=== PATIENT | female | born 1980 | race Caucasian/White ===

== ENCOUNTER 2020-05-06 13:09 | Emergency (ER) | payer OTHER, SELFPAY ==
--- NOTE | ~2020-05-06 | CT_ITS ---
EXAMINATION: CT ABDOMEN AND PELVIS WITHOUT CONTRAST CLINICAL INFORMATION: Left lower quadrant pain. COMPARISON: CT abdomen and pelvis dated 12/15/2018. TECHNIQUE: Multidetector volumetric imaging was performed from the superior aspect of the liver through the pubic symphysis. Sagittal and coronal reformatted images were obtained on the technologist's workstation. This CT examination was performed using dose optimization techniques as appropriate, variously including the following: *Automated exposure control *Adjustment of mA and/or kV according to patient size (this includes techniques or standardized protocols for targeted exams where dose is matched to indication/reason for exam; i.e. extremities or head) *Use of iterative reconstruction technique DLP: 888 mGy-cm FINDINGS: LUNG BASES: The visualized lung bases are unremarkable. LIVER, GALLBLADDER, AND BILIARY TREE: The liver is normal in size, shape, and attenuation. No focal hepatic lesion or biliary ductal dilatation is present. Gallbladder is surgically absent. PANCREAS: Normal. SPLEEN: Normal. ADRENAL GLANDS: Normal. KIDNEYS AND URETERS: The kidneys are normal in size, shape, and attenuation. No hydronephrosis, hydroureter, or calculi seen. No perinephric stranding. BLADDER: Normal. GASTROINTESTINAL TRACT: Approximately 6 cm segment of distal left colon and proximal sigmoid colon wall thickening with surrounding mesenteric fat inflammatory changes and associated inflamed diverticula. No evidence of intraperitoneal free air. No intraperitoneal collection. ABDOMINAL WALL: No significant hernia is appreciated. LYMPH NODES: Normal. VASCULAR: Normal. PELVIC VISCERA: Anteverted uterus. No adnexal mass. OSSEOUS STRUCTURES: No aggressive osseous lesions. L1 superior endplate Schmorl's node. CT/CT abdomen pelvis wo con IMPRESSION: Acute uncomplicated diverticulitis involving an approximately 6 cm of proximal sigmoid colon and small portion of distal left colon.
[2020-05-06 13:50] VITALS: BP 127/75; PULSE 110; RESP 18; TEMP 37.2; O2SAT 99; BMI 39.4
[2020-05-06 14:08] LABS: Glucose Urine UA NEG (NEG); Leukocyte Esterase Urine NEG (NEG); Nitrite Urine NEG (NEG); Specific Gravity - Urine 1.015 (1.005-1.025); Urine Blood NEG (NEG); Urine Ketones NEG (NEG); Urine Protein NEG (NEG-TRACE)
[2020-05-06 14:10] LABS: Appearance Urine HAZY; Color Urine YELLOW
[2020-05-06 14:12] LABS: UPreg QC Valid YES; Urine Pregnancy NEGATIVE (NEGATIVE)
--- NOTE | 2020-05-06 14:43 | ED_ITS ---
HPI - Abdominal Pain General Chief Complaint: Abdominal Pain Stated Complaint: ABD PAIN Time Seen by Provider: 05/06/20 14:33 Source: patient Mode of arrival: ambulatory Limitations: no limitations History of Present Illness HPI narrative: 39 y/o female with history of obesity, seasonal allergies and uterine fibroids presents to the ED with worsening LLQ pain since last night. She reports the pain is sharp and twisting and it does not radiate. Movement and palpation make the pain worse and resting makes it better. She took some Milk of Magnesia yesterday for some constipation. She had a normal bowel movement with no improvement in the pain. She states her LMP was 2-3 weeks ago and she denies chance of . She denies vaginal bleeding or discharge. No blood in her stool. She reports some nausea but no vomiting. She denies fevers but had chills this morning. MD elicited complaint: abdominal pain Pertinent past history: constipation Onset (ago): day(s) Pain Consistency: constant Location: LLQ Severity: severe Quality: cramping and stabbing Radiation: none Migration to: no migration Exacerbating factors: movement Relieving factors: rest Associated symptoms: nausea and constipation Related Data Date of Last Menstrual Period: 04/19/20 Patient : No Previous Rx's Medication Instructions Recorded hydrocodone-acetaminophen 1 tab PO Q8H PRN #5 tab 05/06/20 ibuprofen 600 mg PO Q8H PRN #15 tab 05/06/20 levofloxacin 500 mg PO DAILY 9 Days #9 tab 05/06/20 metronidazole [Flagyl] 500 mg PO Q12H #20 tab 05/06/20 ondansetron HCl [Zofran] 4 mg PO Q8H PRN #10 tab 05/06/20 Allergies Allergy/AdvReac Type Severity Reaction Status Date / Time No Known Allergies Allergy Unverified 11/03/19 16:46 Review of Systems Review of Systems Constitutional: No Fever, + Chills ENT/Mouth: No sore throat, No Rhinorrhea, No Swallowing Difficulty Cardiovascular: No Chest Pain, No SOB Respiratory: No Cough, No Sputum Gastrointestinal: + Nausea, No Vomiting, No Diarrhea, + abdominal Pain Genitourinary: No Dysuria, No Urinary Frequency, No Hematuria Musculoskeletal: No joint pain, No myalgias Skin: No Skin Lesions, No rash Neuro: No Weakness, No Numbness, No Dizziness, No Headache Psych: No Anxiety/Panic, No Depression Heme/Lymph: No Bruising, No Lymphadenopathy Endocrine: No Polyuria, No Polydipsia Physical Exam Vital Signs: Vital Signs: Last Vital Signs Temp 99 F 05/06/20 13:50 Pulse 110 H 05/06/20 13:50 Resp 18 05/06/20 13:50 BP 127/75 05/06/20 13:50 Pulse Ox 99 05/06/20 13:50 Body Mass Index 39.4 Appearance: Alert. Oriented X3. No acute distress. Eyes: Pupils equal, round and reactive to light. ENT: Pharynx normal. Neck: Normal inspection. Neck supple. CVS: Normal heart rate and rhythm. Pulses normal. Respiratory: No respiratory distress. Breath sounds normal. Abdomen: Obese, soft with LLQ tenderness, +rebound. No guarding. +BS x4 Skin: Skin warm and dry. Normal skin color. Normal skin turgor. No rashes. Extremities: No lower extremity edema. Neuro: Oriented X 3. No motor deficit. No sensory deficit. Steady gait Course Course Course Narrative: 39 y/o female presenting with acute onset of LLQ pain that started yesterday. UA is negative and test is negative. She is tender on exam. Will get labs and CT scan for further evaluation. Reevaluation(s) Reevaluation #1: CT showing acute diverticulitis of the sigmoid colon. No leukocytosis. No vomiting. She is able to tolerate PO. Will plan to treat with PO antibiotics, antiemetics and pain control and d/c home. She is agreeable with plan and will follow up with her doctor this week and return to the ER if symptoms worsen. MDM - Abdominal Pain Lab Data Result diagrams: 05/06/20 15:20 05/06/20 15:20 Labs: Lab Results 05/06/20 05/06/20 05/06/20 Range/Units 13:58 13:58 15:20 WBC 6.2 (4.8-10.8) X10*3/uL RBC 4.51 (4.20-5.50) X10*6/uL Hgb 12.6 (12.0-16.0) g/dl Hct 39.2 (37-47) % MCV 86.9 (80-98) fL MCH 27.9 (27.0-33.0) pg MCHC 32.1 (31.0-35.0) g/dl RDW 13.9 (11.0-16.0) % Plt Count 320 (160-400) X10*3/uL MPV 10.4 (9.4-12.3) fL Immature Gran % (Auto) 0.2 (0.0-0.4) % Neut % (Auto) 61.3 (45-73) % Lymph % (Auto) 29.5 (20-40) % [place] % (Auto) 7.7 (2-11) % Eos % (Auto) 0.8 (0-4) % Baso % (Auto) 0.5 (0-2) % Lymph # (Auto) 1.8 (1.2-4.9) X10*3/uL [place] # (Auto) 0.5 (0.1-1.2) X10*3/uL Eos # (Auto) 0.1 (0.0-0.4) X10*3/uL Baso # (Auto) 0.0 (0.0-0.2) X10*3/uL Abs Immat Gran (auto) 0.01 (0.00-0.03) X10*3/uL Absolute Neuts (auto) 3.8 (2.0-8.3) X10*3/uL Absolute Nucleated RBC 0.000 (0.0-0.012) X10*3/uL Nucleated RBC % (auto) 0.0 (0.0-0.2) /100WBC Hold Blue Top Sodium (135-145) mmol/L Potassium (3.3-5.1) mmol/L Chloride (96-108) mmol/L Carbon Dioxide (22-29) mmol/L Anion Gap (12-20) BUN (9-16) mg/dL Creatinine (0.5-1.4) mg/dL Estim Creat Clear Calc Estimated GFR Random Glucose (60-115) mg/dL Calcium (8.4-10.2) mg/dL Magnesium (1.6-2.6) mg/dL Total Bilirubin (0.0-1.0) mg/dL Direct Bilirubin (0.0-0.5) mg/dL AST (5-31) U/L ALT (0-31) U/L Alkaline Phosphatase (39-117) U/L Total Protein (6.5-8.0) g/dL Albumin (3.5-5.0) g/dL Urine Color YELLOW Urine Appearance HAZY Urine pH 7.0 (5.0-8.0) Ur Specific [place] 1.015 (1.005-1.025) Urine Protein NEG (NEG-TRACE) MG/DL Urine Glucose (UA) NEG (NEG) MG/DL Urine Ketones NEG (NEG) MG/DL Urine Blood NEG (NEG) Urine Nitrite NEG (NEG) Ur Leukocyte Esterase NEG (NEG) Urine Test NEGATIVE (NEGATIVE) 05/06/20 05/06/20 Range/Units 15:20 15:20 WBC (4.8-10.8) X10*3/uL RBC (4.20-5.50) X10*6/uL Hgb (12.0-16.0) g/dl Hct (37-47) % MCV (80-98) fL MCH (27.0-33.0) pg MCHC (31.0-35.0) g/dl RDW (11.0-16.0) % Plt Count (160-400) X10*3/uL MPV (9.4-12.3) fL Immature Gran % (Auto) (0.0-0.4) % Neut % (Auto) (45-73) % Lymph % (Auto) (20-40) % [place] % (Auto) (2-11) % Eos % (Auto) (0-4) % Baso % (Auto) (0-2) % Lymph # (Auto) (1.2-4.9) X10*3/uL [place] # (Auto) (0.1-1.2) X10*3/uL Eos # (Auto) (0.0-0.4) X10*3/uL Baso # (Auto) (0.0-0.2) X10*3/uL Abs Immat Gran (auto) (0.00-0.03) X10*3/uL Absolute Neuts (auto) (2.0-8.3) X10*3/uL Absolute Nucleated RBC (0.0-0.012) X10*3/uL Nucleated RBC % (auto) (0.0-0.2) /100WBC Hold Blue Top SEE NOTE Sodium 138 (135-145) mmol/L Potassium 4.7 (3.3-5.1) mmol/L Chloride 103 (96-108) mmol/L Carbon Dioxide 23 (22-29) mmol/L Anion Gap 17 (12-20) BUN 8 L (9-16) mg/dL Creatinine 0.70 (0.5-1.4) mg/dL Estim Creat Clear Calc 129.5 Estimated GFR > 60 Random Glucose 97 (60-115) mg/dL Calcium 8.6 (8.4-10.2) mg/dL Magnesium 2.2 (1.6-2.6) mg/dL Total Bilirubin < 0.2 (0.0-1.0) mg/dL Direct Bilirubin < 0.2 (0.0-0.5) mg/dL AST 16 (5-31) U/L ALT 17 (0-31) U/L Alkaline Phosphatase 71 (39-117) U/L Total Protein 6.8 (6.5-8.0) g/dL Albumin 4.0 (3.5-5.0) g/dL Urine Color Urine Appearance Urine pH (5.0-8.0) Ur Specific [place] (1.005-1.025) Urine Protein (NEG-TRACE) MG/DL Urine Glucose (UA) (NEG) MG/DL Urine Ketones (NEG) MG/DL Urine Blood (NEG) Urine Nitrite (NEG) Ur Leukocyte Esterase (NEG) Urine Test (NEGATIVE) Critical Care Time Critical Care Time Critical Care Time: No Discharge Plan Discharge Clinical Impression: Diverticulitis Patient Disposition: Home, Self-Care Instructions: Diverticulitis (ED), Diverticulitis Diet (ED) Additional Instructions: Your CT scan today showed inflammation and infection in your colon. Take the prescribed antibiotics as directed for 10 days. Start taking them tomorrow. You were given your 1st dose today in the ER. Take the prescribed medications as needed for nausea and pain. Do not drive after taking hydrocodone, it can make you drowsy. Stick to a bland diet while you are not feeling well. Recommend follow up with your doctor this week. Follow up with GI doctor. If you have worsening symptoms come back to the ER for further evaluation. Prescriptions: New metronidazole [Flagyl] 500 mg tablet 500 mg PO Q12H Qty: 20 RF: 0 ondansetron HCl [Zofran] 4 mg tablet 4 mg PO Q8H PRN (Reason: nausea and vomiting) Qty: 10 RF: 0 levofloxacin 500 mg tablet 500 mg PO DAILY 9 Days Qty: 9 RF: 0 ibuprofen 600 mg tablet 600 mg PO Q8H PRN (Reason: pain) Qty: 15 RF: 0 hydrocodone-acetaminophen 5-325 mg tablet 1 tab PO Q8H PRN (Reason: severe pain (scale score 7-10)) Qty: 5 RF: 0 Referrals: Igor Mahajan [Physician] - 1 week (diverticulitis ) [facility] Past Medical History Medical History (Updated 05/06/20 @ 15:51 by AZALEA Roberson) No known health problems Surgical History (Updated 05/06/20 @ 13:52 by Compa Mejia) H/O tubal ligation Hx of cholecystectomy Date of Last Menstrual Period: 04/19/20 Social History Social History Alcohol intake: never Smoking Status: Never smoker Use of substances other than those prescribed or required for medical reasons: No Advance Directives: No Advance Directives Information Provided: No
[2020-05-06 15:30] LABS: MANUAL DIFF FLAG NO
[2020-05-06 15:32] LABS: Basophils Percent Auto 0.5 % (0-2); Eosinophils Absolute Auto 0.1 X10*3/uL (0.0-0.4); Eosinophils Percent Auto 0.8 % (0-4); Hematocrit 39.2 % (37-47); Hemoglobin 12.6 g/dl (12.0-16.0); Imm Gran Abs Auto 0.01 X10*3/uL (0.00-0.03); Imm Gran Pct Auto 0.2 % (0.0-0.4); Lymphocytes Absolute Auto 1.8 X10*3/uL (1.2-4.9); Lymphocytes Percent Auto 29.5 % (20-40); Mean Corpuscular HGB Conc 32.1 g/dl (31.0-35.0); Mean Corpuscular Hemoglobin 27.9 pg (27.0-33.0); Mean Corpuscular Volume 86.9 fL (80-98); Mean Platelet Volume 10.4 fL (9.4-12.3); Monocytes Absolute Auto 0.5 X10*3/uL (0.1-1.2); Monocytes Percent Auto 7.7 % (2-11); Neutrophils Absolute Auto 3.8 X10*3/uL (2.0-8.3); Neutrophils Percent Auto 61.3 % (45-73); Platelet Count 320 X10*3/uL (160-400); Red Blood Count 4.51 X10*6/uL (4.20-5.50); Red Cell Distribution Width 13.9 % (11.0-16.0); White Blood Count 6.2 X10*3/uL (4.8-10.8)
[2020-05-06 16:06] LABS: Alanine Aminotransferase 17 U/L (0-31); Alkaline Phosphatase 71 U/L (39-117); Anion Gap 17 (12-20); Aspartate Amino Transferase 16 U/L (5-31); Bilirubin Direct < 0.2 mg/dL (0.0-0.5); Bilirubin Total < 0.2 mg/dL (0.0-1.0); Blood Urea Nitrogen 8 mg/dL (9-16); Calcium 8.6 mg/dL (8.4-10.2); Carbon Dioxide 23 mmol/L (22-29); Chloride 103 mmol/L (96-108); Creatinine Clr Calc Pharmacy 129.5; Estimated Glomerular Filt Rate > 60; Glucose Random 97 mg/dL (60-115); Magnesium 2.2 mg/dL (1.6-2.6); Potassium 4.7 mmol/L (3.3-5.1); Sodium 138 mmol/L (135-145); Total Protein 6.8 g/dL (6.5-8.0)
[2020-05-06] MEDS: levoFLOXacin 500 MG TABLET PO (16:38)
[2020-05-06] MEDS: Ibuprofen 600 MG TABLET PO (16:38)
[2020-05-06] MEDS: metroNIDAZOLE 500 MG TABLET PO (16:38)
== END 2020-05-06 16:39 | disposition home or self-care (01) ==
PROVIDERS: Physician Assistant; Emergency Provider Emergency Medicine
DX: K57.32 Diverticulitis of large intestine without perforation or abscess without bleeding (principal); R10.32 Left lower quadrant pain
CPT/HCPCS: 36415; 74176; 80048; 80076; 81003; 81025; 83735; 85025; 99284

== ENCOUNTER → 2020-08-30 13:14 | Outpatient (BNVA) | payer OTHER, SELFPAY | PROVIDERS: Visit Provider Nurse Practitioner Family | DX: K59.00 Constipation, unspecified (principal); K21.9 Gastro-esophageal reflux disease without esophagitis; R10.9 Unspecified abdominal pain | CPT/HCPCS: 99202 ==

== ENCOUNTER 2020-10-04 10:57 | Emergency (ER) | payer OTHER, SELFPAY ==
--- NOTE | ~2020-10-04 | CT_ITS ---
EXAMINATION: CT ABDOMEN AND PELVIS WITH CONTRAST CLINICAL INFORMATION: Left lower quadrant pain; GI bleed. COMPARISON: CT abdomen and pelvis dated 05/06/2020. TECHNIQUE: Multidetector volumetric images were obtained from the superior aspect of the liver through the pubic symphysis following administration 85 mL of Omnipaque 350 intravenous contrast. Sagittal and coronal reformatted images were obtained on the technologist's workstation. Oral contrast: No This CT examination was performed using dose optimization techniques as appropriate, variously including the following: *Automated exposure control *Adjustment of mA and/or kV according to patient size (this includes techniques or standardized protocols for targeted exams where dose is matched to indication/reason for exam; i.e. extremities or head) *Use of iterative reconstruction technique DLP: 960 mGy-cm FINDINGS: LUNG BASES: The visualized lung bases are unremarkable. LIVER, GALLBLADDER, AND BILIARY TREE: The liver is normal in size, shape, and attenuation. No focal hepatic lesion or biliary ductal dilatation is present. The gallbladder is surgically absent. PANCREAS: Unremarkable. SPLEEN: Unremarkable. ADRENAL GLANDS: Unremarkable. KIDNEYS AND URETERS: The kidneys are normal in size, shape, and attenuation. No hydronephrosis, hydroureter, or calculi seen. No perinephric stranding. BLADDER: Unremarkable. GASTROINTESTINAL TRACT: There is moderate diverticulosis, without acute diverticulitis. No bowel obstruction, free intraperitoneal air or abscess is seen. There is mild wall thickening of the terminal ileum, the cecum and proximal ascending colon (6:76-84 and 3:47-54).. The vermiform appendix appears normal. ABDOMINAL WALL: There is a tiny fat-containing umbilical hernia. LYMPH NODES: No sizable abdominopelvic lymphadenopathy is seen. VASCULAR: Unremarkable. PELVIC VISCERA: The uterus and adnexa are unremarkable. OSSEOUS STRUCTURES: There are stable mild upper endplate compression fractures of L1 and S1. There is multi-level lower thoracic and lumbar Schmorl's node formation. No acute or aggressive osseous abnormality is seen. CT/CT abdomen pelvis w con IMPRESSION: 1. There is moderate diverticulosis, without acute diverticulitis. The appendix appears normal. 2. There is mild wall thickening of the terminal ileum, cecum and ascending colon. Differential considerations include but are not limited to: Inflammatory bowel disease, infectious etiologies (including tuberculosis) and, less likely, neoplastic etiologies (including lymphoma). If clinically indicated, this can be further evaluated with a barium enema. 3. No bowel obstruction, free intraperitoneal air or abscess is seen. 4. The gallbladder is surgically absent. 5. There are degenerative changes of the thoracolumbar spine.
[2020-10-04 11:57] VITALS: BP 117/66; PULSE 73; RESP 16; TEMP 36.9; O2SAT 99; BMI 39.1
[2020-10-04 13:32] LABS: Hematocrit 39.2 % (37-47); Hemoglobin 12.5 g/dl (12.0-16.0); Mean Corpuscular HGB Conc 31.9 g/dl (31.0-35.0); Mean Corpuscular Hemoglobin 27.6 pg (27.0-33.0); Mean Corpuscular Volume 86.5 fL (80-98); Mean Platelet Volume 10.3 fL (9.4-12.3); Platelet Count 334 X10*3/uL (160-400); Red Blood Count 4.53 X10*6/uL (4.20-5.50); Red Cell Distribution Width 13.6 % (11.0-16.0); White Blood Count 4.4 X10*3/uL (4.8-10.8)
[2020-10-04 13:55] LABS: Anion Gap 11 (12-20); Blood Urea Nitrogen 9 mg/dL (9-16); Calcium 9.1 mg/dL (8.4-10.2); Carbon Dioxide 26 mmol/L (22-29); Chloride 106 mmol/L (96-108); Creatinine Clr Calc Pharmacy 125.8; Estimated Glomerular Filt Rate > 60; Glucose Random 89 mg/dL (60-115); Potassium 4.2 mmol/L (3.3-5.1); Sodium 139 mmol/L (135-145)
--- NOTE | 2020-10-04 14:06 | ED.NAVMDI ---
HPI - Nausea/Vomiting/Diarrhea General Chief complaint: GI Bleed Stated complaint: Multiple complaints Time Seen by Provider: 10/04/20 13:23 Source: patient Mode of arrival: ambulatory Limitations: no limitations History of Present Illness HPI Narrative: Patient history of diverticulosis complaining of diarrhea for last 3 days getting better now and been black in color took Pepto-Bismol yesterday but stool or black on day 1. Patient had 6-7 bowel movements yesterday today had only 2 slight nausea no vomiting had lower abdominal cramping not on any anticoagulant treatment denies any shortness of breath. Patient on Prilosec which she did take it for last 2 days. No history of gastric ulcer. Patient denied any weakness no fever or chills Related Data Home Medications Medication Instructions Recorded Confirmed albuterol sulfate 90 mcg/actuation 2 puff PO Q4H PRN 08/30/20 aerosol inhaler clonazepam 1 mg tablet 1 mg PO TID PRN 08/30/20 fluticasone propionate 50 2 spray INTRANASAL DAILY 08/30/20 mcg/actuation nasal spray,suspension loratadine 10 mg tablet 10 mg PO DAILY 08/30/20 montelukast 10 mg tablet 10 mg PO BEDTIME 08/30/20 omeprazole 20 mg capsule,delayed 20 mg PO DAILY 08/30/20 release Previous Rx's Medication Instructions Recorded hydrocodone 5 mg-acetaminophen 325 1 tab PO Q8H PRN #5 tab 05/06/20 mg tablet ibuprofen 600 mg tablet 600 mg PO Q8H PRN #15 tab 05/06/20 docusate sodium 100 mg capsule 100 mg PO BEDTIME #30 cap 08/30/20 psyllium husk 0.52 gram capsule 0.52 g PO DAILY #30 cap 08/30/20 (Metamucil) ciprofloxacin HCl 250 mg tablet 250 mg PO BID #20 tab 10/04/20 (Cipro) metronidazole 500 mg tablet 500 mg PO BID #20 tab 10/04/20 (Flagyl) Allergies Allergy/AdvReac Type Severity Reaction Status Date / Time No Known Allergies Allergy Verified 10/04/20 12:03 Review of Systems Review of Systems: Constitutional : No Weight loss, No Fever, No Chills ENT/Mouth : No sore throat, No Rhinorrhea Eyes: No Eye Pain, No Swelling Cardiovascular : No Chest Pain, no palpitations Respiratory : No Cough, No Sputum, no shortness of breath Gastrointestinal : + Nausea, No Vomiting, + Diarrhea, + abdominal Pain, + black stools Genitourinary : No Dysuria, No Urinary Frequency Musculoskeletal : No joint pain, No Myalgias, No Joint Swelling Skin : No Skin Lesions, No rash Neuro : No Weakness, No Numbness, No Dizziness, No Headache Psych : No Anxiety/Panic, No Depression Heme/Lymph: No Bruising, No Lymphadenopathy Endocrine : No Polyuria, No Polydipsia All other systems reviewed and are negative [facility] Past Medical History Medical History No known health problems Surgical History H/O tubal ligation Hx of cholecystectomy Family History Family History Mother Diabetes HTN (hypertension) Thyroid crisis Father Diabetes Arthritis Heart disease Social History Social History Alcohol intake: never Patient Tobacco Use Status: Former Tobacco user Tobacco use type: Cigarette Use of substances other than those prescribed or required for medical reasons: No Advance Directives: Yes Advance Directives Information Provided: Yes Advance Directives on File: No Patient : No Physical Exam Vital Signs: Vital Signs: Last Vital Signs Temp 98.5 F 10/04/20 11:57 Pulse 69 10/04/20 14:37 Resp 16 10/04/20 14:37 BP 116/68 10/04/20 14:37 Pulse Ox 100 10/04/20 14:37 Body Mass Index 39.1 Appearance: Alert. Oriented X3. No acute distress. Eyes: No pallor or icterus ENT: Pharynx normal. Oral Mucosa moist Neck: Normal inspection. Neck supple. CVS: Normal heart rate and rhythm. Pulses normal. Respiratory: No respiratory distress. Equal air entry bilateral, no wheezing/rales/rhonchi Abdomen: Soft and nontender. Bowel sounds are present, no mass palpable, no CVA tenderness Rectal: Dark stool guaiac-positive no fresh blood Skin: Skin warm and dry. Normal skin color. Normal skin turgor. Extremities: No lower extremity edema. No calf tenderness Neuro: Oriented X 3. MDM - Nausea/Vomiting/Diarrhea MDM Narrative Medical decision making narrative: Patient with minor GI bleed with likely colitis per CT scan no acute diverticulitis. Will give p.o. Cipro and Flagyl advised to continue Prilosec and follow up with GI and PCP Medical Records Attestation: I reviewed the patient's medical records. Lab Data Attestation: I reviewed the patient's lab results. Result diagrams: 10/04/20 13:16 10/04/20 13:16 Labs: Lab Results 10/04/20 10/04/20 10/04/20 Range/Units 13:16 13:16 14:33 WBC 4.4 L (4.8-10.8) X10*3/uL RBC 4.53 (4.20-5.50) X10*6/uL Hgb 12.5 (12.0-16.0) g/dl Hct 39.2 (37-47) % MCV 86.5 (80-98) fL MCH 27.6 (27.0-33.0) pg MCHC 31.9 (31.0-35.0) g/dl RDW 13.6 (11.0-16.0) % Plt Count 334 (160-400) X10*3/uL MPV 10.3 (9.4-12.3) fL Absolute Nucleated RBC 0.000 (0.0-0.012) X10*3/uL Nucleated RBC % (auto) 0.0 (0.0-0.2) /100WBC Sodium 139 (135-145) mmol/L Potassium 4.2 (3.3-5.1) mmol/L Chloride 106 (96-108) mmol/L Carbon Dioxide 26 (22-29) mmol/L Anion Gap 11 L (12-20) BUN 9 (9-16) mg/dL Creatinine 0.71 (0.5-1.4) mg/dL Estim Creat Clear Calc 125.8 Estimated GFR > 60 Random Glucose 89 (60-115) mg/dL Calcium 9.1 (8.4-10.2) mg/dL Stool Occult Blood POSITIVE (NEGATIVE) Discharge Plan Discharge Clinical Impression: Acute colitis Patient Disposition: Home, Self-Care Instructions: Colitis (ED) Additional Instructions: Drink plenty of fluids Take antibiotic as prescribed Report to the ER/PCP if bleeding continues Continue Prilosec Prescriptions: New ciprofloxacin HCl [Cipro] 250 mg tablet 250 mg PO BID Qty: 20 RF: 0 metronidazole [Flagyl] 500 mg tablet 500 mg PO BID Qty: 20 RF: 0 No Action ibuprofen 600 mg tablet 600 mg PO Q8H PRN (Reason: pain) Qty: 15 RF: 0 hydrocodone-acetaminophen 5-325 mg tablet 1 tab PO Q8H PRN (Reason: severe pain (scale score 7-10)) Qty: 5 RF: 0 psyllium husk [Metamucil] 0.52 gram capsule 0.52 g PO DAILY Qty: 30 RF: 4 docusate sodium 100 mg capsule 100 mg PO BEDTIME Qty: 30 RF: 3
[2020-10-04] MEDS: 0.9 % Sodium Chloride 1,000 ML 999 ML IVCONT (14:32)
[2020-10-04 14:37] VITALS: BP 116/68; PULSE 69; RESP 16; O2SAT 100
[2020-10-04 14:44] LABS: OBS Int Ctl Valid YES; OBS1 POSITIVE (NEGATIVE)
[2020-10-04] MEDS: iohexoL 350 MG/ML 100 ML INFUS..BTL IV (15:02)
[2020-10-04] MEDS: metroNIDAZOLE 500 MG TABLET PO (16:08)
[2020-10-04] MEDS: Pantoprazole Sodium 40 MG/10 ML VIAL IVPUSH (16:08)
[2020-10-04] MEDS: levoFLOXacin 500 MG TABLET PO (16:08)
[2020-10-04 16:12] VITALS: BP 116/75; PULSE 67; RESP 16; O2SAT 100
== END 2020-10-04 16:15 | disposition home or self-care (01) ==
PROVIDERS: Emergency Provider Internal Medicine
DX: K52.9 Noninfective gastroenteritis and colitis, unspecified (principal)
CPT/HCPCS: 36415; 74177; 80048; 82272; 85027; 96361; 96374; 96375; 99284; Q9967

== ENCOUNTER 2022-06-18 09:23 | Outpatient (REF) | payer OTHER, SELFPAY ==
[2022-06-18 10:39] LABS: MANUAL DIFF FLAG NO
[2022-06-18 10:56] LABS: Basophils Absolute Auto 0.1 X10*3/uL (0.0-0.2); Basophils Percent Auto 1.1 % (0-2); Eosinophils Absolute Auto 0.1 X10*3/uL (0.0-0.4); Eosinophils Percent Auto 1.9 % (0-4); Hematocrit 39.4 % (37.0-47.0); Hemoglobin 12.6 g/dl (12.0-16.0); Imm Gran Abs Auto 0.02 X10*3/uL (0.00-0.03); Imm Gran Pct Auto 0.4 % (0.0-0.4); Lymphocytes Absolute Auto 2.4 X10*3/uL (1.2-4.9); Lymphocytes Percent Auto 44.2 % (20-40); Mean Corpuscular Hemoglobin 27.8 pg (27.0-33.0); Mean Corpuscular Volume 86.8 fL (80.0-98.0); Mean Platelet Volume 10.4 fL (9.4-12.3); Monocytes Absolute Auto 0.5 X10*3/uL (0.1-1.2); Monocytes Percent Auto 8.7 % (2-11); Neutrophils Absolute Auto 2.4 x10*3/uL (2.0-8.3); Neutrophils Percent Auto 43.7 % (45-73); Platelet Count 338 X10*3/uL (160-400); Red Blood Count 4.54 X10*6/uL (4.20-5.50); Red Cell Distribution Width 13.9 % (11.0-16.0); White Blood Count 5.4 X10*3/uL (4.8-10.8)
[2022-06-18 11:27] LABS: Appearance Urine Clear; Color Urine Yellow; Glucose Urine UA Negative (Negative); Leukocyte Esterase Urine Negative (Negative); Nitrite Urine Negative (Negative); PH 5.5 (5.0-9.0); Specific Gravity - Urine 1.025 (1.005-1.025); Urine Blood Negative (Negative); Urine Ketones Trace mg/dL (Negative); Urine Protein Negative (Neg-Trace)
[2022-06-18 11:46] LABS: Bacteria Urine None Seen (None Seen); Hyaline Casts Urine 0-2 /LPF (0-2); Squamous Epithelial Cell Urine 0-2 /HPF (0-2); WBC Urine 0-5 /HPF (0-5)
[2022-06-18 11:58] LABS: Erythrocyte Sedimentation Rate 26 MM/HR (0-20)
[2022-06-18 11:59] LABS: Alanine Aminotransferase 14 U/L (0-31); Albumin Level 3.9 g/dL (3.5-5.0); Alkaline Phosphatase 73 U/L (39-117); Anion Gap 12 (12-20); Aspartate Amino Transferase 13 U/L (5-31); Bilirubin Total 0.4 mg/dL (0.0-1.0); Blood Urea Nitrogen 8 mg/dL (9-16); C Reactive Protein 1.79 mg/dL (< or = 0.50); Carbon Dioxide 26 mmol/L (22-29); Chloride 107 mmol/L (96-108); Estimated Glomerular Filt Rate > 60; Glucose Random 95 mg/dL (60-115); Potassium 4.3 mmol/L (3.3-5.1); Sodium 141 mmol/L (135-145); Total Protein 6.6 g/dL (6.5-8.0)
[2022-06-18 12:27] LABS: HBS Num1 0.09 mIU/mL (0-7.99); HBc Num1 0.07 S/CO (0.00-0.79); HBsAGNum1 0.37 S/CO (0.00-0.99); Hepatitis A Antibody IgM 0.19 Index (0-0.79); Hepatitis B Core Antibody Nonreactive (Nonreactive); Hepatitis B Surface Antigen Negative (Negative); ~HepC Num1 0.08 S/CO (0.00-0.79); ~Hepatitis A Antibody IgM Nonreactive (Nonreactive); ~Hepatitis B Surface Antibody NONREACTIVE (Nonreactive); ~Hepatitis C Antibody Nonreactive (Nonreactive)
[2022-06-18 12:31] LABS: Creatinine Urine 203.97 mg/dL; Protein/Creatinine Ratio, Ur 0.06 (<0.2); Total Protein Urine Random 12 mg/dL (<12)
[2022-06-20 13:08] LABS: Anti DNA DS Antibody <1 IU/mL; Antibody to SS-A Antigen <1.0 NEG AI (<1.0 NEG); Antibody to SS-B Antigen <1.0 NEG AI (<1.0 NEG); SM/Ribonucleoprotein Ab <1.0 NEG AI (<1.0 NEG); Smith Protein <1.0 NEG AI (<1.0 NEG)
[2022-06-20 14:28] LABS: Prot Elec - Albumin 3.7 g/dL (3.8-4.8); Prot Elec - Alpha1 0.3 g/dL (0.2-0.3); Prot Elec - Alpha2 0.9 g/dL (0.5-0.9); Prot Elec - Beta 1 0.4 g/dL (0.4-0.6); Prot Elec - Beta 2 0.3 g/dL (0.2-0.5); Prot Elec - Gamma 0.9 g/dL (0.8-1.7); Prot Elec - Total Protein 6.6 g/dL (6.1-8.1)
[2022-06-20 19:44] LABS: Complement C3 154 mg/dL (83-193)
[2022-06-25 13:43] LABS: DNAds, Crithidia Antibody Negative (Negative)
[2022-06-26 14:13] LABS: IgA 206 mg/dL (47-310); IgG 1145 mg/dL (600-1640); IgM 79 mg/dL (50-300)
== END 2022-06-18 09:24 | disposition home or self-care (01) ==
LOC: HO.LAB 09:23
PROVIDERS: PCP Physician Assistant Medical; Visit Provider Student in an Organized Health Care Education/Training Program
DX: Z11.59 Encounter for screening for other viral diseases (principal); M32.9 Systemic lupus erythematosus, unspecified; R76.8 Other specified abnormal immunological findings in serum
CPT/HCPCS: 36415; 80053; 81001; 82784; 84156; 84165; 85025; 85652; 86140; 86160; 86225; 86235; 86255; 86334; 86704; 86706; 86709; 86803; 87340; 99202

== ENCOUNTER 2022-09-24 10:36 | Outpatient (AMB) | payer OTHER, SELFPAY ==
[2022-09-24 10:39] VITALS: BP 118/82; PULSE 91; TEMP 36.3; O2SAT 98; BMI 38.9
--- NOTE | 2022-09-24 10:39 | MHC.OFFVIS ---
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: No Accompanied by: Self / Same As Patient Allergies No Known Allergies Allergy (Verified 09/24/22 10:41) Medication List - Last Reconciled 09/24/22 by Nilam Cardona MD albuterol sulfate 90 mcg/actuation 2 puffs PO Q4H PRN clonazepam 1 mg PO TID PRN docusate sodium 100 mg PO BEDTIME fluticasone propionate 50 mcg/actuation 2 sprays intranasal DAILY hydrocodone-acetaminophen 5-325 mg 1 tab PO Q8H PRN ibuprofen 600 mg PO Q8H PRN loratadine 10 mg PO DAILY montelukast 10 mg PO BEDTIME omeprazole 20 mg PO DAILY HPI HPI Comments History of Present Illness Details Patient returns for follow-up after completion of her blood work. She states that she got a referral to do physical therapy for her back from her PCP and she was schedule an appointment soon. Initial history: This is 41-year-old female who presents for evaluation of positive CHARLES. Over the last few months/years patient has been having pain in her lower back radiating to her buttocks, she also has bilateral heel pain, that is worse in the morning with taking the 1st few steps and late at night. She also has squeezing muscle pain in both forearms. When she had COVID back in February she developed a diffuse itchy rash that lasted for a week then self-resolved. States that her father has rheumatoid arthritis. Mother has fibromyalgia. Patient was prescribed Celebrex by her PCP which did not help much. 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 Review of Systems Resp Reports no additional complaints Musc Reports back pain and Reports arthralgias Physical Exam Vital Signs: Last Vital Signs Temp 97.3 F 09/24/22 10:39 Pulse 91 09/24/22 10:39 BP 118/82 09/24/22 10:39 Pulse Ox 98 09/24/22 10:39 BMI result Body Mass Index 38.9 Const General: cooperative, healthy appearing and comfortable Nutritional Appearance: obese morbidly obese Orientation/consciousness: patient oriented x3 Limitations: no limitations HEENT Head: Yes normocephalic and Yes atraumatic Mouth: moist mucous membranes Resp Effort & Inspection: normal respiratory effort and able to speak in complete sentences Neuro General: patient oriented x3 Extrem Other: No active synovitis Normal nailfold capillaroscopy Some tenderness to palpation just distal to the left elbow, a particularly at the common extensor origin. Negative resisted wrist extension test bilaterally Bilateral heel and posterior foot tenderness without swelling Results Reviewed Results Reviewed: Labs 03/10? CBC unremarkable ESR 35? TSH normal? CCP/RF/Lyme screen negative? CPK normal? Magnesium normal? CHARLES 1-640 homogeneous CRP 1.01 (<0.5) Assessment & Plan Assessment & Plan (1) CHARLES positive: Code(s): R76.8 - Other specified abnormal immunological findings in serum Plan: This is a 42-year-old female who presents for evaluation of a positive CHARLES 1-640 homogeneous and diffuse body pain. I do not see any evidence of autoimmune rheumatic disease. Comprehensive serology is unremarkable. Patient has mildly elevated inflammatory markers which can be related to her obesity. Follow-up in 1 year for re-evaluation Coding Level of Care Code Est Pt Level 3 (66323) Diagnoses CHARLES positive R76.8
== END 2022-09-24 10:57 | disposition home or self-care (01) ==
PROVIDERS: PCP Physician Assistant Medical; Visit Provider Student in an Organized Health Care Education/Training Program
DX: R76.8 Other specified abnormal immunological findings in serum (principal)
CPT/HCPCS: 99213

== ENCOUNTER → 2022-09-24 10:36 | Outpatient (BNVA) | payer OTHER, SELFPAY | PROVIDERS: PCP Physician Assistant Medical; Visit Provider Student in an Organized Health Care Education/Training Program | DX: R76.8 Other specified abnormal immunological findings in serum (principal) | CPT/HCPCS: 99212 ==